=== PATIENT | female | born 1990 | race Caucasian/White ===

== ENCOUNTER 2017-11-23 16:59 | Emergency (ER) | payer MEDICAID ==
[~2017-11-23] VITALS: Ht 165.1 cm; Wt 52.9 kg
[2017-11-23 18:04] LABS: BASOPHILS % (AUTO) 0.3 % (0-1); EOSINOPHILS % (AUTO) 0 % (0-6); HEMOGLOBIN 13.3 g/dl (12.0-16.0); LYMPHOCYTES # (AUTO) 0.9 X10'3 (1.1-4.8); LYMPHOCYTES % (AUTO) 10.9 % (21-51); MEAN CORPUSCULAR HEMOGLOBIN 29.9 PG (27.0-31.0); MEAN CORPUSCULAR VOLUME 88.1 FL (78-98); MEAN PLATELET VOLUME 9.3 FL (7.4-10.4); MONOCYTES # (AUTO) 0.5 X10'3 (0-0.9); MONOCYTES % (AUTO) 6.7 % (2-12); NEUTROPHILS # (AUTO) 6.5 X10'3 (1.8-7.7); NEUTROPHILS % (AUTO) 82.1 % (42-75); PLATELET COUNT 325 X10'3 (140-440); RED BLOOD COUNT 4.43 X10'6 (4.20-5.60); RED CELL DISTRIBUTION WIDTH 12.9 % (11.5-14.5); WHITE BLOOD COUNT 7.9 X10'3 (4.5-11.0)
[2017-11-23 18:16] LABS: PARTIAL THROMBOPLASTIN TIME 29 SECONDS (22-32); PROTHROMBIN TIME 10.6 SECONDS (9.0-12.0)
[2017-11-23 18:23] LABS: CLARITY,URINE Cloudy (Clear); COLOR,URINE Yellow (Yellow); GLUCOSE, URINE Negative (Neg); KETONES,URINE Negative (Neg); LEUKOCYTE ESTERASE ,URINE Moderate (Neg); NITRITES, URINE Negative (Neg); OCCULT BLOOD,URINE Small (Neg); PH,URINE 7.5 (4.8-8.0); PROTEIN,URINE 30 mg/dl (Neg)
[2017-11-23 18:25] LABS: ALANINE AMINOTRANSFERASE 13 U/L (12-78); ALBUMIN 3.9 G/DL (3.4-5.0); ALBUMIN/GLOBULIN RATIO 0.8 (1.1-1.5); ALKALINE PHOSPHATASE 101 IU/L (46-116); ANION GAP 13 (8-16); ASPARTATE AMINO TRANSFERASE 15 U/L (10-37); BILIRUBIN,TOTAL 0.4 MG/DL (0.1-1.0); BLOOD UREA NITROGEN 7 MG/DL (7-18); BUN/CREATININE RATIO 7.4 (6.6-38.0); CALCIUM 9.4 MG/DL (8.5-10.1); CHLORIDE 99 MMOL/L (99-107); CREATININE 0.95 MG/DL (0.40-0.90); GLUCOSE 98 MG/DL (70-104); POTASSIUM 3.1 MMOL/L (3.5-5.1); SODIUM 139 MMOL/L (135-145); TOTAL CARBON DIOXIDE 26.6 MMOL/L (24-32); TOTAL PROTEIN 8.6 G/DL (6.4-8.2); eGFR 71 ML/MIN
[2017-11-23 18:28] LABS: URINE HCG NEGATIVE (NEG)
[2017-11-23 18:39] LABS: UA COLLECTION TYPE VOIDED
[2017-11-23 18:48] LABS: MUCUS STRANDS MANY /LPF (Neg); SQUAMOUS EPITHELIAL CELL,UR MANY /LPF (FEW)
[2017-11-23 18:49] LABS: BACTERIA,URINE 1+ /HPF (Neg); WBC,URINE 20-30 /HPF (0-4)
[2017-11-23] MEDS ORDERED: HYDROmorphone 1 mg/ml syringe IV PRN (19:00)
[2017-11-23] MEDS ORDERED: ondansetron/PF 4mg/2ml inj IV ONE (19:00)
[2017-11-23] MEDS ORDERED: normal saline 1000ML IV soln IVB ONE (19:00)
[2017-11-23] MEDS ORDERED: HYDROmorphone inj. 0.5 MG/0.5 ML DISP.SYRIN IV PRN (19:04)
[2017-11-23 19:36] LABS: LIPASE 160 U/L (73-393)
[2017-11-23] MEDS ORDERED: metroNIDAZOLE 500mg tablet PO ONE (21:20)
[2017-11-23] MEDS ORDERED: CefTRIAXone inj 250 MG in normal saline 50ml IV soln 50 ML IV ONE (21:20)
[2017-11-23] MEDS ORDERED: azithromycin 250mg tablet PO ONE (21:20)
[2017-11-23] MEDS ORDERED: METR500T PO (21:26)
[2017-11-23] MEDS ORDERED: cefTRIAXone 1g/NS 100ml IVPB 100 ML IV STA (21:40)
[2017-11-23 22:46] VITALS: BP 101/60
== END 2017-11-23 22:49 | disposition home or self-care (01) ==
LOC: ER 17:00
DX: N72 Inflammatory disease of cervix uteri (principal); Z56.0 Unemployment, unspecified; Z79.899 Other long term (current) drug therapy
CPT/HCPCS: 36415; 71045; 80053; 81001; 81025; 83605; 83690; 84145; 85025; 85610; 85730; 87040; 87070; 87491; 87591; 96361; 96365; 96375; 99285; J0696; J1170; J2405; J3490; J7030; J7040

== ENCOUNTER 2022-10-20 16:14 | Emergency (ER) | payer OTHER, MEDICAID ==
[~2022-10-20] VITALS: Ht 165.1 cm; Wt 54.0 kg
[2022-10-20 16:18] VITALS: BP 120/56
== END 2022-10-20 18:27 | disposition home or self-care (01) ==
LOC: ER 16:16
DX: M25.531 Pain in right wrist (principal); Z56.0 Unemployment, unspecified; Z88.5 Allergy status to narcotic agent; Z79.899 Other long term (current) drug therapy
CPT/HCPCS: 29125; 73130; 99284

== ENCOUNTER 2024-04-04 00:13 | Emergency (ER) | payer MEDICAID, OTHER ==
[~2024-04-04] VITALS: Ht 157.5 cm; Wt 61.0 kg
[2024-04-04 00:17] VITALS: BP 114/69; PULSE 63; RESP 16; TEMP 97.8; O2SAT 99
[2024-04-05] MEDS ORDERED: CEFD300C3 PO (22:06)
== END 2024-04-04 04:06 | disposition left against medical advice (07) ==
LOC: ER 00:14
DX: R05.9 Cough, unspecified (principal); Z53.21 Procedure and treatment not carried out due to patient leaving prior to being seen by health care provider
CPT/HCPCS: 71045

== ENCOUNTER 2024-04-05 21:32 | Emergency (ER) | payer MEDICAID ==
[~2024-04-05] VITALS: Ht 157.5 cm; Wt 63.6 kg
[2024-04-05] MEDS ORDERED: CEFD300C3 PO (22:06)
[2024-04-05] MEDS: CefTRIAXone 1000mg IM Kit (w/lidocaine diluent) IM ONE (22:17)
[2024-04-05 22:24] VITALS: BP 107/71; PULSE 58; RESP 22; TEMP 99; O2SAT 98
== END 2024-04-05 22:25 | disposition home or self-care (01) ==
LOC: ER 21:33
DX: J20.9 Acute bronchitis, unspecified (principal); Z88.8 Allergy status to other drugs, medicaments and biological substances; Z56.0 Unemployment, unspecified
CPT/HCPCS: 96372; 99283; J0696

== ENCOUNTER 2024-04-23 19:13 | Emergency (ER) | payer MEDICAID ==
[~2024-04-23] VITALS: Ht 157.5 cm; Wt 59.1 kg
[2024-04-23 19:20] VITALS: TEMP 98.3
[2024-04-23] MEDS: normal saline 1000ml 1,000 ML IV ONE (19:47)
[2024-04-23] MEDS: dexamethasone sod phosphate 10mg/ml inj IV STA (19:48)
[2024-04-23] MEDS: dicyclomine 10 MG capsule PO ONE (19:48)
[2024-04-23] MEDS: ondansetron/PF 4mg/2ml inj IV ONE (19:48)
[2024-04-23 19:49] LABS: BASOPHILS # (AUTO) 0.1 X10'3 (0-0.2); BASOPHILS % (AUTO) 0.8 % (0-1); EOSINOPHILS # (AUTO) 0.1 X10'3 (0-0.9); EOSINOPHILS % (AUTO) 1.3 % (0-6); HEMATOCRIT 36.3 % (35.0-45.0); HEMOGLOBIN 12.2 g/dl (12.0-16.0); LYMPHOCYTES # (AUTO) 2.7 X10'3 (1.1-4.8); LYMPHOCYTES % (AUTO) 30.8 % (21-51); MEAN CORPUSCULAR HEMOGLOBIN 30.4 PG (27.0-31.0); MEAN CORPUSCULAR HGB CONC 33.5 g/dL (33.0-36.5); MEAN CORPUSCULAR VOLUME 90.5 FL (78-98); MEAN PLATELET VOLUME 9.2 FL (7.4-10.4); MONOCYTES # (AUTO) 0.5 X10'3 (0-0.9); MONOCYTES % (AUTO) 5.2 % (2-12); NEUTROPHILS # (AUTO) 5.5 X10'3 (1.8-7.7); NEUTROPHILS % (AUTO) 61.9 % (42-75); PLATELET COUNT 348 X10'3 (140-440); RED BLOOD COUNT 4.01 X10'6 (4.20-5.60); RED CELL DISTRIBUTION WIDTH 14.3 % (11.5-14.5); WHITE BLOOD COUNT 8.9 X10'3 (4.5-11.0)
[2024-04-23 19:53] VITALS: BP 107/64; PULSE 63; RESP 16; O2SAT 100
[2024-04-23 20:12] LABS: HCG SERUM QL NEGATIVE
[2024-04-23 20:14] LABS: ALANINE AMINOTRANSFERASE 19 U/L (12-78); ALBUMIN 3.7 G/DL (3.4-5.0); ALBUMIN/GLOBULIN RATIO 0.9 (1.1-1.5); ALKALINE PHOSPHATASE 79 IU/L (46-116); ANION GAP 8 (8-16); ASPARTATE AMINO TRANSFERASE 12 U/L (10-37); BILIRUBIN,TOTAL 0.9 MG/DL (0.1-1.0); BLOOD UREA NITROGEN 10 MG/DL (7-18); BUN/CREATININE RATIO 9.4 (10.0-20.0); CALCIUM 9.2 MG/DL (8.5-10.1); CHLORIDE 104 MMOL/L (99-107); CREATININE 1.06 MG/DL (0.40-0.90); GLUCOSE 88 MG/DL (70-104); LIPASE 23 U/L (16-77); POTASSIUM 3.7 MMOL/L (3.5-5.1); SODIUM 141 MMOL/L (135-145); TOTAL CARBON DIOXIDE 29.2 MMOL/L (24-32); eCRCL 60 ML/MIN; eGFR 60 ML/MIN
[2024-04-23] MEDS ORDERED: ONDA-243 PO (21:00)
[2024-04-23] MEDS ORDERED: DICY20TA17 PO (21:00)
== END 2024-04-23 21:24 | disposition home or self-care (01) ==
LOC: ER 19:14
DX: E86.0 Dehydration (principal); R53.1 Weakness; R53.81 Other malaise; M79.10 Myalgia, unspecified site; Z20.822 Contact with and (suspected) exposure to COVID-19; Z56.0 Unemployment, unspecified; Z88.8 Allergy status to other drugs, medicaments and biological substances
CPT/HCPCS: 36415; 80053; 83690; 84703; 85025; 96361; 96374; 96375; 99284; J1100; J2405; J7030